=== PATIENT | female | born 1990 | race Two or more races ===

== ENCOUNTER 2022-10-24 10:07 | Inpatient (IN) | payer OTHER ==
[~2022-10-24] VITALS: Ht 157.5 cm; Wt 94.3 kg
[2022-10-25] MEDS ORDERED: SYNTHROID75 MCG PO (07:50)
== END 2022-11-02 11:55 | disposition home or self-care (01) | DRG 743 ==
LOC: OB/GYN 10-31 05:40 → O/R 10-31 05:40 → SURG 10-31 07:00 → OB/GYN 10-31 12:03
PROVIDERS: ADMIT Obstetrics & Gynecology; ATTEND Obstetrics & Gynecology
PROC: 0TNB0ZZ Release Bladder, Open Approach (ICD-10-PCS; 2022-10-31)
PROC: 0DN80ZZ Release Small Intestine, Open Approach (ICD-10-PCS; 2022-10-31)
PROC: 0UT90ZZ Resection of Uterus, Open Approach (ICD-10-PCS; principal; 2022-10-31 07:00)
DX: D25.2 Subserosal leiomyoma of uterus (principal); N73.6 Female pelvic peritoneal adhesions (postinfective); Z20.822 Contact with and (suspected) exposure to COVID-19